=== PATIENT | male | born 1975 | race Caucasian/White ===

== ENCOUNTER 2016-08-21 18:12 | Emergency (ER) | payer OTHER ==
[~2016-08-21] VITALS: Ht 190.5 cm; Wt 133.8 kg
[2016-08-21] MEDS ORDERED: NAPR500T PO (18:25)
[2016-08-21] MEDS ORDERED: IPRATROPIUM 0.5MG/ALBUTEROL 2.5MG INH SOL UD 3ML (DUONEB)(J7620) NEB ONE (19:15)
[2016-08-21] MEDS ORDERED: predniSONE 20 MG TAB PO ONE (19:15)
--- NOTE | 2016-08-21 19:28 | REP ---
The lung chinchilla are clear. The cardiac size is normal The guanako, mediastinum, and bony thorax are unremarkable. Impression: Negative PA and lateral chest. No comparisons Signed by Jag Wick MD 08/21/2016 07:20 P
[2016-08-21] MEDS ORDERED: ALBU17IN INH (19:59)
[2016-08-21] MEDS ORDERED: TESS100C PO (19:59)
[2016-08-21] MEDS ORDERED: PRED20TA PO (19:59)
[2016-08-21 20:05] VITALS: BP 141/81
[2016-08-21] MEDS ORDERED: ALBUTEROL 90 MCG/ACT 8GM HFA INHALER As Ordered ONE (20:09)
[2016-08-21] MEDS ORDERED: ALBUTEROL 90 MCG/ACT 8GM HFA INHALER INH ONE (20:15)
--- NOTE | 2016-08-22 07:47 | ECGEPIP ---
Stationary ECG Study [facility] - ED Test Date: 2016-08-21 Pat Name: MARCO CORNELIUS Department: Room: - Gender: M Graduate Student Instructor: JOSEPH : 1975 Requested By: Reggie Augustin PA-C Order Number: [id number] Reading MD: Ryan Banda Measurements Intervals [place] Rate: 77 P: 50 MS: 178 QRS: -32 QRSD: 113 T: 15 QT: 387 QTc: 439 Interpretive Statements SINUS RHYTHM LEFT AXIS DEVIATION INCOMPLETE RIGHT BUNDLE BRANCH BLOCK NO PRIORS Electronically Signed On 08-22-2016 7:47:35 EDT by Ryan Banda
== END 2016-08-21 20:20 | disposition home or self-care (01) ==
LOC: M ED 19:09
DX: J20.9 Acute bronchitis, unspecified (principal); Z88.0 Allergy status to penicillin

== ENCOUNTER → 2016-12-17 | Outpatient (CLI) | payer OTHER ==
[~2016-12-17] MED LIST: ALBU17IN INH; NAPR500T PO; PRED20TA PO; TESS100C PO
--- NOTE | 2016-12-21 12:51 | SLEEPCENT ---
DATE OF STUDY: 12/17/2016 ORDERED BY: Hanh Watkins Nocturnal polysomnography was performed for evaluation of sleep apnea syndrome symptoms in this patient with a history of excessive somnolence and snoring with nonrestorative sleep. 8 hours and 35 minutes of data were reviewed. There were 382 minutes of sleep identified. Sleep latency was prolonged at 71 minutes. Rapid eye movement (REM) latency was prolonged at 108 minutes. Sleep architecture was fair with 3 REM periods appreciated. Some fragmentation was seen early in the study. Overall sleep efficiency was 76.1%. The patient's electrocardiogram (EKG) showed a sinus rhythm with an average heart rate of 48 beats per minute. Electroencephalogram (EEG) showed reasonably normal waveforms for awake and sleep. There were 54 respiratory events identified of 10 seconds in duration or greater for an apnea-hypopnea index of 8.5. The events were primarily obstructive, not exclusive to sleep stage nor body posture. Arousals from respiratory events occurred 1.4 times per hour and oxygen desaturations were seen into the low 80s. There was minimal limb activity and remaining measures of sleep physiology were normal. IMPRESSION: Obstructive sleep apnea (G47.33), apnea-hypopnea index 8.5. RECOMMENDATION: The patient should be encouraged to return to the sleep disorder center for pressure therapy. In the interim, alcohol and sedative avoidance should be practiced and caution exercised during the operation of motor vehicles.
== END ==
LOC: M SLEEP 19:39
PROVIDERS: ATTEND Nurse Practitioner Adult Health
DX: G47.33 Obstructive sleep apnea (adult) (pediatric) (principal)

== ENCOUNTER → 2016-12-31 | Outpatient (CLI) | payer OTHER ==
--- NOTE | 2017-01-04 11:51 | SLEEPCENT ---
DATE OF STUDY: 12/31/2016 ORDERING PROVIDER: Hanh Watkins NP Nocturnal polysomnography was performed for the titration of pressure therapy in this patient with obstructive sleep apnea syndrome, apnea-hypopnea index of 8.5. For testing, a [employer] Quattro Mirage full face mask of large size was used. 5 cm of water pressure were applied to the circuit, and the lights were extinguished. 8 hours and 33 minutes of data were reviewed. There were 190 minutes of sleep identified. Sleep latency was prolonged at 39 minutes. Rapid eye movement (REM) latency was more so prolonged at 263 minutes. Sleep architecture showed poor progression initially. Improvement was seen on optimal pressure therapy. Overall sleep efficiency was reduced by awake after sleep onset to 44%. The patient's electrocardiogram (EKG) showed a sinus rhythm with an average heart rate of 44 beats per minute. Electroencephalogram (EEG) showed reasonably normal waveforms for awake and sleep. The best sleep was seen at a continuous positive airway pressure (CPAP) pressure of +9, with which pressure the patient's respiratory events were reasonably palliated. The remaining measures of sleep physiology were normal. IMPRESSION: Obstructive sleep apnea syndrome (G47.33). RECOMMENDATION: Nightly use of pressure therapy 9 cm of water.
== END ==
LOC: M SLEEP 19:50
PROVIDERS: ATTEND Nurse Practitioner Adult Health
DX: G47.33 Obstructive sleep apnea (adult) (pediatric) (principal)